=== PATIENT | male | born 1945 | race Caucasian/White ===

== ENCOUNTER 2018-09-02 17:46 | Emergency (ER) | payer MEDICARE, SELFPAY ==
[2018-09-02 17:46] VITALS: BP 122/89; PULSE 74; RESP 16; TEMP 36.2; O2SAT 97; BMI 38.7
[2018-09-02] MEDS: morphine 8 MG/ML Syringe IM (18:20)
[2018-09-02] MEDS: Orphenadrine 60 MG/2 ML Ampul IM (18:23)
--- NOTE | 2018-09-02 19:30 | ED.DCSUM_ITS ---
- ER Visit Summary Date of Service: 09/02/18 Chief Complaint: Back pain History of Present Illness: The patient is a [address] Beck. Patient reports he has chronic back pain has a history of spinal stenosis. Reports that today he was leaning against an island when it slid and he twisted awkwardly. He did not fall. States that approximately 2 hours later it feels as though he has muscle spasms in his back. Reports is a sharp pain is 510 when he remained still. Is 10 out of 10 with movement. He denies any radiation to his legs. No numbness or tingling in his legs. No problems with his bowels or his bladder. No groin numbness. No fever, chills, abdominal pain, or other red flags. Physical Examination: Vitals: Stable. Afebrile. General: A&O x 3. NAD. Cardiovascular exam: Regular rate and rhythm, no murmur, rub or gallop. Respiratory exam: Clear to auscultation bilaterally. No wheezes or stridor. Abdominal exam: Soft, nontender, nondistended, normal bowel sounds. No peritoneal signs. Back: Diffuse moderate tenderness to palpation over the lumbar spine and the paraspinous musculature in the lumbar region. No point tenderness. Negative straight leg bilaterally. 5/5 DF, PF, EHL bilaterally. Normal sensation to light touch throughout. Extremity: No clubbing, cyanosis, or edema. Emergency Department Course and Treatment: An OARRS report was obtained which shows that the patient is been forthcoming with his history. He has had 10 prescriptions for opiates in the past year. However these have all been from Dr. Brett Lopez. He is currently on 2 [place] a day. Patient reports he has been on this for 4-5 years. I suspect that he has developed tolerance to this and this is not going to work for his pain. He is given dose of morphine and Norflex IM here. He is resting comfortably. Treatment Plan: Patient will be discharged with Percocet for pain. Instructed to follow-up with his primary care physician in 3-5 days if not improving. He is also given the name of Dr. Jolly for pain management. Return to the emergency department for any worsening symptoms. Disposition: To home in improved and stable condition. Impression: 1. Acute on chronic back pain. This note was generated with Dragon dictation software. It may contain incorrect words, spelling, and punctuation that were not noted in review of the chart prior to signing ED Disposition - Plan for ED Patient: Disposition: Home or Assisted Living Chief Complaint: Back Instructions: ED Neck Back Pain General Prescriptions: Oxycodone HCl/Acetaminophen [Percocet 5/325] 1 tablet PO Q6H PRN PRN 3 Days #12 tablet PRN Reason: Pain Orphenadrine [Norflex ER] 100 mg PO BID #14 tablet Referrals: Vu Beck MD [Primary Care Provider] - 3-5 Days if not improving Randa Jolly MD [STAFF PHYSICIAN] - As soon as possible
[2018-09-02 19:42] VITALS: PULSE 84; RESP 16; O2SAT 96
== END 2018-09-02 19:43 | disposition home or self-care (01) ==
LOC: ED 18:27
PROVIDERS: Emergency Provider Emergency Medicine; Family Provider Family Medicine; PCP Family Medicine
DX: M54.5 Low back pain (principal); G89.29 Other chronic pain; X50.1XXA Overexertion from prolonged static or awkward postures, initial encounter; Y93.9 Activity, unspecified; Y92.9 Unspecified place or not applicable; E11.9 Type 2 diabetes mellitus without complications; I10 Essential (primary) hypertension; E78.00 Pure hypercholesterolemia, unspecified; M48.00 Spinal stenosis, site unspecified; Z86.718 Personal history of other venous thrombosis and embolism; Z86.711 Personal history of pulmonary embolism; Z79.01 Long term (current) use of anticoagulants; Z79.899 Other long term (current) drug therapy
CPT/HCPCS: 96372; 99282

== ENCOUNTER → 2020-04-27 07:32 | Outpatient (CLI) | payer MEDICARE, SELFPAY ==
--- NOTE | 2020-04-27 07:36 | RAD_ITS ---
STUDY: X-RAY - LUMBAR SPINE REASON FOR EXAM: Male, 74 years old. Lower back pain TECHNIQUE: 3 view(s) of the lumbar spine were obtained. COMPARISON: CT of the abdomen and pelvis dated 10/26/2014 FINDINGS: There is no evidence of fracture or dislocation in the lumbar spine. The vertebral body heights are well-maintained. There are moderate multilevel degenerative changes with facet hypertrophy, disc space narrowing and anterior osteophytes. This is significantly changed when compared with the abdominal CT dated 10/20/2014. RAD/Lumbar Spine 2 or 3 Views IMPRESSION: No fracture or dislocation in the lumbar spine. Stable moderate degenerative change. Electronically Signed: Tomasz Pierson, at 16:32 EDT Tel , Service support ,
== END ==
PROVIDERS: PCP Family Medicine; Referring Provider Anesthesiology Pain Medicine; Visit Provider Anesthesiology Pain Medicine
DX: M54.9 Dorsalgia, unspecified (principal)
CPT/HCPCS: 72100

== ENCOUNTER 2020-04-27 17:28 | Emergency (ER) | payer MEDICARE, OTHER, SELFPAY ==
[2020-04-27 17:30] VITALS: BP 140/82; PULSE 64; RESP 16; TEMP 36.6; O2SAT 94; BMI 41.3
--- NOTE | 2020-04-27 17:57 | ED.DCSUM_ITS ---
History of Present Illness Chief Complaint: Back Informant: Patient, Significant Other Onset: Today Context: Sudden Onset Chronic pain exacerbated by: getting off of flaat XRay table this AM, again after twisting at home Injury: Twisting Timing: Continuous Quality: Aching Location: Lumbar - middle Current Severity: Moderate Maximum Severity: Severe Worsened by: improves with: Movement, Ambulation Relieved by: Remaining Still Associated Symptoms: Numbness - chronic both feet, unchanged; no saddle anesthesia, Radiation to Left Leg - chronically intermittent but not today, - - No fevers or abdominal pain. Able to ambulate but with significant pain. No new weakness. No new bowel or bladder dysfunction, patient states that he is on a diuretic and dribbles urine frequently, and that is unchanged. He urinated to day and was able to when he wanted to without retention. Narrative: Patient is significant other describe chronic pain in his back, for years and a diagnosis of spinal stenosis. He came to a point recently when he was asked if he wanted to consider surgery or pain management first and they decided on pain management. He received a prescription for Percocet from pain management for the first time yesterday, and he tries not to take them, they are dosed twice daily as needed. He states he had some outpatient x-rays scheduled for this morning of his back, and they put him on a flat hard table and on getting off of it, he had a significant exacerbation of his pain so his gave him a Percocet, that was the second 1 today, the first was this morning. Then he went home and states he was doing some work outside and twisted and had a severe exacerbation of it that has persisted. He has chronic peripheral neuropathy in his feet and that is unchanged. Prior similar symptoms: Yes, With Prior Back Pain - Past Medical History (1) Type 2 diabetes mellitus Status: Chronic (2) Peripheral neuropathy Status: Chronic (3) Chronic back pain Status: Chronic (4) History of DVT (deep vein thrombosis) Status: Chronic (5) History of pulmonary embolism Status: Chronic (6) Hypertension Status: Chronic (7) PAF (paroxysmal atrial fibrillation) Status: Chronic (8) Thoracic spinal stenosis Status: Chronic Past Medical History - Allergies and Home Meds Allergies/Adverse Reactions: Allergies milk Adverse Reaction (Verified 04/27/20 17:30) Upset Stomach Milk Containing Products Adverse Reaction (Verified 04/27/20 17:30) Upset Stomach Primary Care Physician: Vu Beck MD [Primary Care Provider] - 1 Week if not improving (and/or Dr. whitney) Surgical History: - - IVC Filter, Thoracic back surgery, RUE ulnar nerve surgery, R ankle spur surgery, T+A. Lives: Spouse/ Significant Other Smoking Status: Never smoker - Family History Maternal Family History: Reports: Heart Disease Paternal Family History: Reports: No pertinent history Review of Systems General: Denies: Chills, Fever, Sweats Gastrointestinal: Denies: Abdominal pain, Nausea, Vomiting, Diarrhea, Melena, Hematochezia Genitourinary: Reports: Frequency - Chronic, due to diuretic according the patient. Denies: Dysuria, Hematuria Musculoskeletal: Reports: Back pain. Denies: Swelling, Extremity Pain - Not currently Skin: Denies: Rash, Wounds Neurological: Reports: Numbness. Denies: Headache, Weakness Physical Exam Vital Signs/Narrative: Vital Signs Temp Pulse Resp BP Pulse Ox 04/27/20 17:30 97.8 F 64 16 140/82 H 94 Inital Vital Signs reviewed: Yes General: Well nourished, Well developed, Obese, - - No acute distress, but in pain if he tries to move at all with regards to his low back Head: Normocephalic, Atraumatic Eyes: Perrl, EOMI Neck: Supple - FROM, Nontender Respiratory: No distress Abdomen: Soft, Nontender, Nondistended, Normal bowel sounds. Negative for: Pulsatile mass Back: Normal Inspection, Nontender, Negative SLR - Right, Negative SLR - Left. Negative for: Spinal tenderness Extremeties: Nontender, Edema - Mild both lower extremities pretibial, signs of chronic stasis no infection or cellulitis, Strong Pulses, Symmetric Skin: Normal color, No rash, No Trauma Neuro: Alert, Oriented, Normal Strength, Normal DTR, Normal Gait, Normal Reflexes, Parasthesia - both feet, symmetric Psychological: Normal affect, Normal Mood Diagnostic/Tx/Re-eval - Medical Decision Making Patient had lumbar spine x-rays earlier today, I did look at the results and dis cussed with the patient, and they show degenerative arthritis but no acute abnormalities. He was treated with IM morphine and Norflex. Before it started working, he and his decided to be discharged, he states he feels he will be able to make it to the car, and go home and rest which I am fine with. ED Disposition - Plan for ED Patient: Disposition: Home or Assisted Living Diagnosis: Acute exacerbation of chronic low back pain Instructions: ED Back Pain Acute or Chronic Referrals: Vu Beck MD [Primary Care Provider] - 1 Week if not improving (and/or Dr. whitney)
[2020-04-27] MEDS: Orphenadrine 60 MG/2 ML Ampul IM (18:34)
[2020-04-27] MEDS: Morphine 4 MG/ML Syringe IM (18:34)
[2020-04-27 18:45] VITALS: RESP 18
== END 2020-04-27 19:03 | disposition home or self-care (01) ==
PROVIDERS: Emergency Provider Emergency Medicine; PCP Family Medicine
DX: M54.5 Low back pain (principal); G89.29 Other chronic pain; E66.9 Obesity, unspecified; I10 Essential (primary) hypertension; I48.0 Paroxysmal atrial fibrillation; E11.40 Type 2 diabetes mellitus with diabetic neuropathy, unspecified; M48.04 Spinal stenosis, thoracic region; Z86.711 Personal history of pulmonary embolism; Z86.718 Personal history of other venous thrombosis and embolism; Z79.01 Long term (current) use of anticoagulants; Z79.899 Other long term (current) drug therapy
CPT/HCPCS: 72100; 96372; 99282

== ENCOUNTER 2020-05-08 07:52 | Outpatient (RCR) | payer MEDICARE, SELFPAY ==
--- NOTE | 2020-05-08 10:01 | HP.PTEVAL_ITS ---
Patient's Visit Information LACI LAWLER is a 74 year old M referred to Physical Therapy by Dr. Randa Jolly MD with a diagnosis of BACK PAIN,LEG PAIN,LEG WEAKNESS. Date of Evaluation: 05/08/20 Physical Therapist: Isael Grewal, PT, Cert MDT, OCS - Visit Plan Frequency: 2x /Week Duration: 4 Weeks Plan: PT INTERVENTIONS MODALTIES ,FLEXION LUMBAR,DLS ABD/BACK,POSTURAL EX'S - Subjective This 74 y/o male presents physical therapy with back pain,leg pain and leg weakness. Patient has lumbar pain and weakness since 2002 since falling off platform . Patient had lumbar surgery laminectomy due to bone spurs. Patient most recently spine DR recommended possible spine surgery ,did MR showed spinal stenosis DDD MOD . Patient recently developed back pain twisting went to ER due to severe back pain. Patient x-rays and morphine and muscle relaxer. Seen Dr Barnes reccommended pain MEDS and wants to do epidural injections. Aggraveting factors walking and standing affects ADLS' and housework tasks.Patient unable to lay supine in bed causes severe pain .Sleeps with recliner . Aleviating siting resting. C/O left leg parathesia/tingling. Patient bowel/bladder. Coughing/sneezing-. Location symmtrical lumbar occasional left leg.Pateint pain affects QOL ,ADLS' and function.Patient is only able to walk 1 block ,but uses cart helped to unload spine. SOCIAL: . 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 GAIT: reciprocal pattern antalgic gait unsteady. NEURO: denies parathesia/tingling 1/3 L3-4,L4-5,L5-S1. MMT:quads/hams 4-/5,hip flexion,abd 3+/5 ,ankle 4/5. LUMBAR ROM: mod loss flexion,severe loss extension,side glides mod loss. FLEXABLITY : hams mod loss,piriformis mod loss - Special Tests L/S Slump test left side: Negative L/S Slump test right side: Negative L/S Left Straight Leg Raise: Negative L/S Right Straight Leg Raise: Negative - Goals Goal 1:: Independant with HEP Goal Time Frame: 4-6 Weeks Goal 2:: Decrease lumbar pain by 50% or> with walking and standing . Goal Time Frame: 4-6 Weeks Goal 3:: Improve lumbar ROM for function of recovery Goal Time Frame: 4-6 Weeks Goal 4:: Patient improve strength hip flexors 4-/5 to i mprove gait Goal Time Frame: 4-6 Weeks Goal 5:: Patient to improve back owestry score by 5 points or > to improve QOL. Goal Time Frame: 4-6 Weeks - Rehabilitation Potential Physical Therapy Diagnosis: This patient has lumbar pain and radicular symptoms left leg along with weakness LE especially hips with poor lumbar ROM ,inablity to walk 1 block or stand stand < 5mins ,MRI showes stenosis and DDD. Rehabilitation Potential: Good - Anticipated Interventions Patient/Client Instruction: Educate patient on: Condition, Plan of Care For the Purpose of:: To decrease pain, To increase ROM, To improve muscle performance and motor function, To improve ability to perform ADL's, To increase tolerance to activity/condition/position, To improve ability of physical actions for home/community/work/leisure, To improve health of tissue, To decrease soft tissue restriction, To increase flexibility/ROM, To reduce risk of recurrence, To improve health and function, To improve ability to perform tasks related to life management Therapeutic Exercise to Include: Strength training, Postural training, Flexibilty training, Dynamic Lumbar Stabilization For the Purpose of:: To decrease pain, To increase ROM, To improve muscle performance and motor function, To improve ability to perform ADL's, To increase tolerance to activity/condition/position, To improve ability of physical actions for home/community/work/leisure, To improve health of tissue, To decrease soft tissue restriction, To increase flexibility/ROM, To improve ability to perform tasks related to life management TENS: Yes IF ES: Yes Cryotherapy (ice pack, ice massage): Yes Thermo therapy (hot pack): Yes Ultrasound (thermal/non thermal): Yes For the Purpose of:: To decrease pain, To increase ROM, To improve muscle performance and motor function, To improve ability to perform ADL's, To increase tolerance to activity/condition/position, To improve ability of physical actions for home/community/work/leisure, To improve health of tissue, To decrease soft tissue restriction, To reduce risk of recurrence, To improve ability to perform tasks related to life management Thank you for the opportunity to evaluate your patient. For Medicare and Medicare O plans, please review the plan of care and approve it. It will need to be FAXED BACK to us at [phone] for Medicare purposes. For Medicare only, by signing this I certify the plan of care. Please let me know if there are questions or concerns regarding this plan of care. Physician Signature: Date:
== END 2020-05-08 19:00 | disposition home or self-care (01) ==
LOC: PT 07:52
PROVIDERS: PCP Family Medicine; Referring Provider Anesthesiology Pain Medicine; Visit Provider Anesthesiology Pain Medicine
DX: M54.9 Dorsalgia, unspecified (principal); M79.606 Pain in leg, unspecified; R29.898 Other symptoms and signs involving the musculoskeletal system
CPT/HCPCS: 97110; 97162

== ENCOUNTER → 2020-07-05 16:57 | Outpatient (CLI) | payer MEDICARE, SELFPAY ==
[2020-07-05 17:32] LABS: Amphetamine Urine VISTA NEGATIVE (<1000 ng/mL); Barbiturate Urine VISTA NEGATIVE (< 200 ng/mL); Benzodiazepine Urine VISTA NEGATIVE (< 200 ng/mL); Cocaine Urine VISTA NEGATIVE (< 300 ng/mL); Ecstacy Urine VISTA NEGATIVE (< 500 ng/mL); Methadone Urine VISTA NEGATIVE (< 300 ng/mL); PCP Urine VISTA NEGATIVE (< 25 ng/mL); THC Urine VISTA NEGATIVE (< 50 ng/mL); Vista UDS pH Range 6
== END ==
PROVIDERS: PCP Family Medicine; Referring Provider Anesthesiology Pain Medicine; Visit Provider Anesthesiology Pain Medicine
DX: F11.20 Opioid dependence, uncomplicated (principal)
CPT/HCPCS: 80307

== ENCOUNTER → 2021-01-01 12:14 | Outpatient (CLI) | payer MEDICARE, SELFPAY ==
[2021-01-01 15:14] LABS: Amphetamine Urine VISTA NEGATIVE (<1000 ng/mL); Barbiturate Urine VISTA NEGATIVE (< 200 ng/mL); Benzodiazepine Urine VISTA NEGATIVE (< 200 ng/mL); Cocaine Urine VISTA NEGATIVE (< 300 ng/mL); Ecstacy Urine VISTA NEGATIVE (< 500 ng/mL); Methadone Urine VISTA NEGATIVE (< 300 ng/mL); PCP Urine VISTA NEGATIVE (< 25 ng/mL); THC Urine VISTA NEGATIVE (< 50 ng/mL); Vista UDS pH Range 5
== END ==
PROVIDERS: PCP Family Medicine; Referring Provider Anesthesiology Pain Medicine; Visit Provider Anesthesiology Pain Medicine
DX: F11.20 Opioid dependence, uncomplicated (principal)
CPT/HCPCS: 36415; 80307

== ENCOUNTER 2021-01-23 12:00 | Outpatient (RCR) | payer MEDICARE, SELFPAY ==
--- NOTE | 2021-01-07 08:55 | HP.PTEVAL ---
Patient's Visit Information LACI LAWLER is a 75 year old M referred to Physical Therapy by Dr. Randa Jolly MD with a diagnosis of Leg weakness. Date of Evaluation: 01/07/21 Physical Therapist: Se Dao, ALINAT, OCS, CSCS - Visit Plan Frequency: 3x /Week Duration: 4-6 Weeks Plan: 2-3x/week for 3-6 weeks for start pool based therapy for. 1. LB ROM emphasizing NS. 2. HS and quad stretches. 3. core strengtha dn general ex progressing to HEP or community pool. Ensure patient using at least cane. sent doctor request for wh walker with sliders and would prefer him use this. He is aware of this and may contact doctor himself. Progress to land therapy if needed after water. - Subjective Dr. Jolly sent him over. Said he was too stiff. Has stenosis of spine and legs go numb and feel weak and don't respond to him properly. Has tripped ont things and fallen before. Has cane and walker but forgets them, he knows how to use them. Legs are numb much of time descirbed as not responding. Sees surgeon at [facility] every 3 months but nothing to be done there. Dr. Jolly gives injections 3x now, it helps for 2 months or so and last one was in October. Helps his nerve respond quicker afte injection. Pt says surgeon wanted to do surgery but pt did not want it. Had a surgery in 2006 and it really helped to have it cleaned out. Has had previous therapy for this and does a lot better and put surgery off. He is comfortable at rest in a chair. Sleeps in recliner as he cannot sleep in bed. Sleeps well in chair. Hurts in bed. 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 Used to workout at but stopped due to covid. Spends day hauling [employer] and watching TV and work around house with what he can, cannot be on feet all day. Lives with in a [place] without steps. Basic ADLs are done I, needs sock aide to put on socks. - Pain LBP Pain Intensity (Out of 10): 0 Pain Intensity Range: 0, 9 Comment: 0 at rest. - Objective Walks I slowly and hunched over, neuropathic gait pattern with diminished motor control in feet and ankles. Stand romberg is challenging even with eo but static standing balance fair with wide ROC. LB AROM fully limited in extension with pain, flexion mod limited, SB max limited. HS and quads max tight at -55 90/90 HS test and unable to get to neutral hip ext with knee bent. Sit to stand requires UE and sometimes multiple attempts, bed trasnfer I but slow and painful. reflexes patella and achilles 1/3 B. Sensation LE at deficit in feet adn ankles and motor control of ankles i slow and at deficit with ev/inv. L ankle aROM limited due to previous surgery in ankle but funcitonal. Strength ankles 3+ B, knees 4 B, hips 3+ B hip felxion, abd, ext. Hard to get pelvic movement due to extreme tightness in back and upper leg muscles. Walks out with wh walker much safer adn less pain in 300 feet then the walk back to eval room. - Balance Scores Functional Gait Assessment Score: 15 % Disability: 50.0000 - Goals Goal 1:: I approp Pool or land based ex to manage condition. Goal Time Frame: 4-6 Weeks Goal 2:: Pt report pain 03/10 at worst and 50$% better overall. Goal Time Frame: 4-6 Weeks Goal 3:: LEFSscore 45/80 Goal Time Frame: 4-6 Weeks - Rehabilitation Potential Physical Therapy Diagnosis: Functional deficits and balance concerns fro leg weakness due to stenosis and sedentarism Rehabilitation Potential: Fair - Anticipated Interventions Patient/Client Instruction: Educate patient on: Condition, Plan of Care For the Purpose of:: To decrease pain, To increase ROM, To improve muscle performance and motor function, To increase tolerance to activity/condition/position, To improve ability of physical actions for home/community/work/leisure Therapeutic Exercise to Include: Strength training, Postural training, Flexibilty training, Gait and locomotor training, In an aquatic setting, Passive ROM, Active ROM, Dynamic Lumbar Stabilization For the Purpose of:: To decrease pain, To increase ROM, To improve muscle performance and motor function, To increase tolerance to activity/condition/position, To improve ability of physical actions for home/community/work/leisure, To improve gait and locomotor functions, To increase flexibility/ROM Thank you for the opportunity to evaluate your patient. For Medicare and Medicare HMO plans, please review the plan of care and approve it. It will need to be FAXED BACK to us at [phone] for Medicare purposes. For Medicare only, by signing this I certify the plan of care. Please let me know if there are questions or concerns regarding this plan of care. Physician Signature: Date:
--- NOTE | 2021-03-28 17:32 | HP.PTDCNRP_ITS ---
LACI LAWLER was seen in my office for initial evaluation on 01/07/21. The following Plan of Care was established for this patient: Initial Frequency: 3x /Week Initial Duration: 4-6 Weeks Patient/Client Instruction: Educate patient on: Condition, Plan of Care For the Purpose of:: To decrease pain, To increase ROM, To improve muscle performance and motor function, To increase tolerance to activity/condition/position, To improve ability of physical actions for home/community/work/leisure Therapeutic Exercise to Include: Strength training, Postural training, Flexibilty training, Gait and locomotor training, In an aquatic setting, Passive ROM, Active ROM, Dynamic Lumbar Stabilization For the Purpose of:: To decrease pain, To increase ROM, To improve muscle performance and motor function, To increase tolerance to activity/co ndition/position, To improve ability of physical actions for home/community/work/leisure, To improve gait and locomotor functions, To increase flexibility/ROM This patient was last seen in our office 01/23/21. Pertinent comments regarding their Physical therapy will appear below: Pt seen 6 visits of POC but did not attend or reschedule the last two. at this point, it has been over 2 months adn I will discontinue due to nonattendance. At this point I will be discontinuing this patient from physical therapy. I would be happy to see this patient again in the future if found appropriate by the physician. Thank you! Se Dao, DPT, OCS, CSCS
== END 2021-01-23 19:00 | disposition home or self-care (01) ==
LOC: PT 12:00
PROVIDERS: PCP Family Medicine; Referring Provider Anesthesiology Pain Medicine; Visit Provider Anesthesiology Pain Medicine
DX: R53.1 Weakness (principal)
CPT/HCPCS: 97113; 97162

== ENCOUNTER → 2022-05-01 | Outpatient (CLI) | payer MEDICARE, SELFPAY ==
[2022-05-01 13:38] LABS: Amphetamine Urine VISTA NEGATIVE (<1000 ng/mL); Barbiturate Urine VISTA NEGATIVE (< 200 ng/mL); Benzodiazepine Urine VISTA NEGATIVE (< 200 ng/mL); Cocaine Urine VISTA NEGATIVE (< 300 ng/mL); Ecstacy Urine VISTA NEGATIVE (< 500 ng/mL); Methadone Urine VISTA NEGATIVE (< 300 ng/mL); PCP Urine VISTA NEGATIVE (< 25 ng/mL); THC Urine VISTA NEGATIVE (< 50 ng/mL); Vista UDS pH Range 5
== END | disposition home or self-care (01) ==
LOC: LAB 12:48
PROVIDERS: PCP Family Medicine; Referring Provider Anesthesiology Pain Medicine; Visit Provider Anesthesiology Pain Medicine
DX: F11.20 Opioid dependence, uncomplicated (principal)
CPT/HCPCS: 80307

== ENCOUNTER 2022-09-10 16:23 | Outpatient (CLI) | payer MEDICARE, SELFPAY ==
--- NOTE | 2022-09-10 16:53 | MRI_ITS ---
STUDY: MR Spine Lumbar W/O Contrast 09/10/2022 7:26 PM REASON FOR EXAM: Male, 76 years old. Back pain RADICULOPATHY, LUMBAR SPINE Technologist Notes Other, LOW BACK PAIN WITH BILATERAL LEG PAIN. LEGS GIVE OUT ON HIM X 2-3 YEARS. HX OF LUMBAR SURGERY. TECHNIQUE: MR Spine Lumbar W/O Contrast Standardized fat and water weighted pulse sequences were obtained. COMPARISON: CT abdomen and pelvis 10/26/2014 FINDINGS: There is straightening of the normal lumbar lordosis. There is no substantial scoliosis. Normal conus medullaris that terminates at the L1. L1-2: Normal endplates. Normal disc height and morphology. Normal central canal and intervertebral neuroforamina. L2-3: Loss of intervertebral disc height. There is endplate spondylosis of the vertebral body. Normal central canal and intervertebral neuroforamina. There is bilateral facet arthropathy. L3-4: There is bilateral ligamentum flavum thickening. Disc desiccation. Loss of intervertebral disc height. There is endplate spondylosis of the vertebral body. Severe degenerative facet disease on the left side. Left neural foraminal stenosis. Compression of exiting left nerve roots. Narrowing of the left lateral recess. L4-5: There is bilateral ligamentum flavum thickening. Disc desiccation. Loss of intervertebral disc height. There is endplate spondylosis of the vertebral body. Bilateral neural foraminal stenosis. Compression of exiting nerve roots. L5-S1: Normal endplates. Normal disc height and morphology. Normal central canal and intervertebral neuroforamina.There is bilateral facet arthropathy. Normal visualized sacral ala. Normal visualized paraspinous soft tissue structures. MRI/Spine Lumbar (Routine) IMPRESSION: Multilevel degenerative changes, as described above. L3-4: Severe degenerative facet disease on the left side. Left neural foraminal stenosis. Compression of exiting left nerve roots. Narrowing of the left lateral recess. L4-5: Bilateral neural foraminal stenosis. Compression of exiting nerve roots. Electronically Signed: Sarkis Loera MD at 19:31 EST ,
== END 2022-09-10 23:59 | disposition home or self-care (01) ==
PROVIDERS: PCP Family Medicine; Visit Provider Anesthesiology Pain Medicine
DX: M54.16 Radiculopathy, lumbar region (principal)
CPT/HCPCS: 72148

== ENCOUNTER → 2023-03-26 | Outpatient (CLI) | payer MEDICARE, SELFPAY ==
[2023-03-26 16:33] LABS: Amphetamine Urine VISTA NEGATIVE (<1000 ng/mL); Barbiturate Urine VISTA NEGATIVE (< 200 ng/mL); Benzodiazepine Urine VISTA NEGATIVE (< 200 ng/mL); Cocaine Urine VISTA NEGATIVE (< 300 ng/mL); Ecstacy Urine VISTA NEGATIVE (< 500 ng/mL); Methadone Urine VISTA NEGATIVE (< 300 ng/mL); PCP Urine VISTA NEGATIVE (< 25 ng/mL); THC Urine VISTA NEGATIVE (< 50 ng/mL); Vista UDS pH Range 5
== END | disposition home or self-care (01) ==
LOC: LAB 14:24
PROVIDERS: PCP Family Medicine; Visit Provider Anesthesiology Pain Medicine
DX: F11.20 Opioid dependence, uncomplicated (principal)
CPT/HCPCS: 80307

== ENCOUNTER 2023-10-08 15:07 | Inpatient (IN) | payer OTHER, SELFPAY ==
[2023-10-08 15:13] VITALS: BP 120/74; PULSE 92; RESP 32; TEMP 36.8; O2SAT 85; BMI 41.5
[2023-10-08 15:30] VITALS: BP 137/89; PULSE 86; RESP 22; O2SAT 93
--- NOTE | 2023-10-08 15:31 | EKG12_ITS ---
Test Reason : DYSRHYTHMIA Blood Pressure : / mmHG Vent. Rate : 096 BPM Atrial Rate : 000 BPM P-R Int : 000 ms QRS Dur : 134 ms QT Int : 348 ms P-R-T Axes : 000 074 -47 degrees QTc Int : 439 ms Atrial fibrillation Right bundle branch block T wave abnormality, consider inferolateral ischemia Abnormal ECG Confirmed by LEYLA LANDON, PEACE ([id number]), editor farm journal LEVAR SMITH ([id number]) on 10/09/2023 1:58:06 PM Referred By: TRISH Confirmed By:PEACE MAYER MD
--- NOTE | 2023-10-08 15:33 | EX.ED.DYSGE1 ---
HPI History of Present Illness Chief Complaint: Weakness Narrative Narrative: 77-year-old male presenting with generalized weakness. He has been sick for a couple of days with a mild cough, subjective fevers and chills. Patient states he has been a little nauseous. Patient was going to see his primary care physician today for an appointment but as he got up to walk to the door he became weak and his legs could not move and was concerned he would fall. Patient was hypoxic when EMS arrived 85% on room air and he does not usually wear oxygen. He denies chest pain but does feel short of breath. 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 Patient is on Eliquis with history of A-fib and PEs. He has not missed any doses. PFSH PFSH Home Medications Ibuprofen [Motrin] 800 mg PO TID PRN PRN Pain 11/28/16 [History Last Taken Unknown] apixaban 5 mg tablet (Eliquis) 5 mg PO BID #30 tabs 11/28/16 [Rx Last Taken 10/08/23] atorvastatin 40 mg tablet (Lipitor) 40 mg PO QHS 11/28/16 [History Last Taken Unknown] furosemide 40 mg tablet 40 mg PO DAILY 11/28/16 [History Last Taken Unknown] oxycodone-acetaminophen 5 mg-325 mg tablet 1 tab PO TID PRN Pain Score 1-07/2804/27/20 [History Last Taken Unknown] finasteride 5 mg tablet 5 mg PO DAILY Prostate 10/08/23 [History Last Taken Unknown] gabapentin 300 mg capsule 300 mg PO QHS Neuropathy 10/08/23 [History Last Taken Unknown] glimepiride 1 mg tablet 1 mg PO DAILY Diabetes 10/08/23 [History Last Taken 10/08/23] metformin 500 mg tablet 500 mg PO BID 10/08/23 [History Last Taken 10/08/23] metoprolol succinate 50 mg tablet,extended release 24 hr 50 mg PO DAILY Blood pressur 10/08/23 [History Last Taken 10/08/23] tamsulosin 0.4 mg capsule 0.4 mg PO QHS 10/08/23 [History Last Taken 10/07/23] tirzepatide 5 mg/0.5 mL subcutaneous pen injector (Mounjaro) 5 mg subcut QWEEK Weight loss 10/08/23 [History Last Taken Unknown] Allergy/AdvReac Type Severity Reaction Status Date / Time milk AdvReac Upset Verified 04/27/20 17:30 Stomach Milk Containing Products AdvReac Upset Verified 04/27/20 17:30 (Dairy) Stomach [Milk Containing Products] Social History Smoking Status: Never smoker ROS ROS ED ROS Narrative Neurolysed weakness Constitutional Constitutional ED: Reports chills and subjective; Denies fever(s) or sweats Eyes Eyes: Denies blurry vision or change in vision ENT ENT ED: Reports sore throat; Denies ear pain Cardiovascular Cardiovascular: Denies chest pain, palpitations or racing heartbeat Respiratory/Chest Respiratory/Chest: Reports cough and dyspnea; Denies sputum Gastrointestinal Gastrointestinal: Reports nausea; Denies abdominal pain, constipation, diarrhea or vomiting Genitourinary Genitourinary ED: Denies dysuria, hematuria or urinary frequency Musculoskeletal Musculoskeletal: Denies arthralgias, myalgias or neck pain Integumentary Denies abscess, Abrasions or rash Neurologic Neurologic: Denies headache(s), paresthesias or weakness Psychiatric Psychiatric: Denies anxiety, depression, suicidal ideation or suicidal thoughts Endocrine Endocrinology: Denies polydipsia or polyuria EXAM Physical Exam Const Vital Signs: 10/08/23 15:13 10/08/23 15:30 10/08/23 15:31 Temperature 98.3 F Temperature Source Oral Pulse Rate 92 86 Respiratory Rate 32 H 22 H Respiratory Pattern Tachypnea Blood Pressure 120/74 137/89 H Blood Pressure Mean 89 105 Pulse Ox 85 93 Oxygen Delivery Method Room Air Nasal Cannula Oxygen Flow Rate (L/min) 3 10/08/23 16:39 10/08/23 17:23 Temperature 98.0 F Temperature Source Pulse Rate 99 88 Respiratory Rate 27 H 16 Respiratory Pattern Blood Pressure 145/83 H 125/84 H Blood Pressure Mean 103 97 Pulse Ox 96 98 Oxygen Delivery Method Nasal Cannula Oxygen Flow Rate (L/min) 3 Positive well nourished General Appearance ED: NAD; Negative for pallor HEENT Reports moist mucous membranes Eyes PERRL and EOMs intact bilaterally Neck no lymphadenopathy Chest Wall inspection of chest normal Resp Resp Narrative: Hypnic. Auscultation: diminished lung sounds right lower and left lower Cardio regular rate and regular rhythm GI normal to inspection, nondistended, normoactive bowel sounds Extremity normal to inspection Neuro oriented x3 and CN's II-XII intact bilaterally Sensorium / Orientation: alert Psych mental status grossly normal Skin no rashes or lesions noted and no wounds General Skin Exam: Negative for jaundice or pallor MDM MDM MDM Narrative Medical decision making narrative: Presenting with generalized weakness. Found to be hypoxic on room air at 85%. Patient placed on 3 L and is doing well. Patient reports feeling ill this week for the last 2 days. Subjective fevers at home but they do not own a thermometer. Differential includes but is not limited to ACS, pneumonia, pneumonia, COVID, influenza, dehydration, electro abnormalities, anemia. PE was considered however patient is anticoagulated. CBC obtained to assess white blood cell count, hemoglobin, platelets. CMP to assess liver function, renal function, electrolytes. High-sensitivity troponin and EKG to assess for ischemia. Chest x-ray to rule out pneumonia. BNP will be added to assess for CHF. Patient given a Cepacol lozenge as he states he has a sore throat. He is also given Reglan as he feels a little nauseous. He was already given Zofran via squad and route. CBC shows normal white blood cell count of 6.7. Hemoglobin 16.1. Platelets are 155. Renal function and electrolytes within normal limits. LFTs unremarkable with exception of a total bilirubin of 1.10. BNP mildly elevated 141 was negative for infection. Rapid COVID came back positive. Chest x-ray on my interpretation shows no acute process. The radiologist interprets this and agrees. Requested Tylenol for sore throat and this did not help his throat. He was given a Cepacol lozenge as well. Since the patient is hypoxic he was started on Decadron. Discussed with hospitalist for admission. Impression: 1. Debility 2. COVID-19 3. Hypoxia Lab Data Labs: Laboratory Results - last 24 hr 10/08/23 10/08/23 15:15 16:35 WBC 6.7 RBC 5.17 Hgb 16.1 Hct 49.0 MCV 94.8 H MCH 31.1 MCHC 32.9 RDW Std Deviation 50.0 H RDW Coeff of Zohra 14.2 Plt Count 155 MPV 10.1 Immature Gran % (Auto) 0.300 Neut % (Auto) 55.5 Lymph % (Auto) 30.6 [place] % (Auto) 13.1 H Eos % (Auto) 0.0 Baso % (Auto) 0.5 Absolute Neuts (auto) 3.7 Absolute Lymphs (auto) 2.04 Nucleated RBC % 0 Sodium 139 Potassium 4.0 Chloride 105 Carbon Dioxide 26.0 Anion Gap 8 BUN 15 Creatinine 1.08 Estim Creat Clear Calc 57.18 Est GFR (MDRD) Af Amer 86 Est GFR (MDRD) Non-Af 71 BUN/Creatinine Ratio 13.9 Glucose 133 H Calcium 8.3 L Total Bilirubin 1.10 H AST 28 ALT 42 Alkaline Phosphatase 63 Troponin I High Sens 8 B-Natriuretic Peptide 149.1 H Total Protein 7.2 Albumin 3.1 L Globulin 4.1 Albumin/Globulin Ratio 0.8 L Urine Color Yellow Urine Clarity Clear Urine pH 6.0 Ur Specific [place] 1.020 Urine Protein 100 H Urine Glucose (UA) Normal Urine Ketones 5 H Urine Occult Blood 25 H Urine Nitrite Negative Urine Bilirubin Negative Urine Urobilinogen Normal Ur Leukocyte Esterase 25 H Urine RBC 0-5 SEEN Urine WBC 0-5 SEEN Ur Squamous Epith Cells 0-5 SEEN Urine Bacteria 0 SEEN Urine Mucus 0 SEEN Radiography Diagnostic Testing: Clinical Impression(s) from Imaging Studies Chest X-Ray 10/08/23 15:45 IMPRESSION: No radiographic evidence of acute cardiopulmonary disease. Electronically Signed: George Abernathy DO at 17:01 EST Reading Location ID and State: [address] [place] [address] Tel [phone], Service support , Discharge Plan Triage Chief Complaint: Weakness ED Provider: John Joyce Dx/Rx/DC Orders Prescriptions: No Action furosemide 40 MG tablet 40 mg PO DAILY atorvastatin [Lipitor] 40 MG tablet 40 mg PO QHS Ibuprofen [Motrin] 800 MG tablet 800 mg PO TID PRN PRN (Reason: Pain) Eliquis 5 MG tablet 5 mg PO BID Qty: 30 0RF Rx Instructions: 2 tabs po twice daily for first 7 days, then 1 tab po twice daily oxycodone-acetaminophen 1 TABLET tablet 1 tab PO TID PRN (Reason: Pain Score 1-10/10) metformin 500 mg tablet 500 mg PO BID metoprolol succinate 50 mg tablet extended release 24 hr 50 mg PO DAILY glimepiride 1 mg tablet 1 mg PO DAILY tamsulosin 0.4 mg capsule 0.4 mg PO QHS gabapentin 300 mg capsule 300 mg PO QHS finasteride 5 mg tablet 5 mg PO DAILY Mounjaro 5 mg/0.5 mL pen injector 5 mg subcut QWEEK Patient Comments: Takes on Sundays Primary Care Provider: Vu Beck Referrals: Vu Beck MD [Primary Care Provider] -
[2023-10-08] MEDS: Metoclopramide 10 MG/2 ML Vial IV (15:41)
[2023-10-08] MEDS: BENZOCAINE/MENTHOL 1 LOZENGE MUCOUS MEM (15:42)
--- NOTE | 2023-10-08 15:45 | RAD_ITS ---
INDICATION: cough EXAMINATION/TECHNIQUE: X-RAY - XR Chest 1 View COMPARISON: October 24, 2014 FINDINGS: LINES/DEVICES: None. LUNGS: No consolidation, edema or effusion. No pneumothorax. MEDIASTINUM AND CARDIOVASCULAR STRUCTURES: Cardiac silhouette not enlarged. Central airways and mediastinal contour are unremarkable. BONES AND SOFT TISSUES: Unremarkable. RAD/Chest 1 View (Portable) IMPRESSION: No radiographic evidence of acute cardiopulmonary disease. Electronically Signed: George Abernathy DO at 17:01 EST ,
[2023-10-08 15:49] LABS: Absolute Lymphocyte Count 2.04 X10^3/uL (0.83-4.51); Absolute Neutrophil Count 3.7 X10^3/uL (2.0-7.7); Basophil# 0.03 X10^3/uL; Basophil% 0.5 % (0-1); Hemoglobin 16.1 g/dL (13.0-16.5); Lymphocyte # 2.04 X10^3/ul (0.83-4.51); Lymphocyte % 30.6 % (19-41); Mean Corp Hgb Conc 32.9 g/dL (32-36); Mean Corpuscular Hgb 31.1 pg (27.0-32.0); Mean Corpuscular Volume 94.8 fL (80-94); Mean Platelet Vol. 10.1 fl (6.2-12.0); Monocyte# 0.87 X10^3/uL; Monocyte% 13.1 % (0-10); NRBC Flagged by Analyzer 0 % (0-5); Neutrophil % 55.5 % (47-70); Platelet Count 155 K/mm3 (150-450); RBC Distribution Width CV 14.2 % (11.6-14.6); Red Blood Count 5.17 M/mm3 (4.6-6.2); White Blood Count 6.7 K/mm3 (4.4-11.0)
[2023-10-08 16:02] LABS: ALB/GLOB Ratio 0.8 RATIO (0.9-2.4); AST(SGOT) 28 U/L (15-37); Alanine Aminotransfer ALT/SGPT 42 U/L (16-61); Albumin, Serum 3.1 g/dL (3.2-5.0); Alkaline Phosphatase 63 U/L (45-117); Anion Gap 8 (5-15); BUN 15 mg/dL (7-18); BUN/Creat Ratio 13.9 RATIO (10-20); Calcium,Total 8.3 mg/dL (8.5-10.1); Chloride 105 mmol/L (98-107); Creatinine, Serum 1.08 mg/dL (0.70-1.30); EST Glomerular Filtration Rate 71 mL/min (>60); Est Glom Filt Rate - Afr Amer 86 mL/min (>60); Estimated Creatinine Clearance 57.18 ml/min; Globulin 4.1 g/dL (2.2-4.2); Glucose 133 mg/dL (74-106); Protein, Total 7.2 g/dL (6.4-8.2); Sodium Level 139 mmol/L (136-145); Troponin-I HS 8 pg/mL (3.0-78.0)
[2023-10-08 16:22] LABS: BNP,B-Type NATRIURETIC PEPTIDE 149.1 pg/mL (0-100)
[2023-10-08 16:39] VITALS: BP 145/83; PULSE 99; RESP 27; O2SAT 96
[2023-10-08 16:42] LABS: Bacteria 0 SEEN /hpf (None Seen); Mucous, Urine 0 SEEN /hpf (<or=2+)
[2023-10-08 17:01] LABS: Color, Urine Yellow (Yellow); Glucose, Dipstick Normal (Normal); Ketone-Dipstick 5 mg/dl (Negative); Leukocyte Esterase-Dipstick 25 /ul (Negative); Nitrite-Dipstick Negative (Negative); Occult Blood-Urine 25 /ul (Negative); Protein-Dipstick 100 mg/dl (Negative); Urine Bilirubin Dipstick Negative (Negative); Urine Clarity Clear (Clear); Urine Urobilinogen Normal (Normal)
[2023-10-08] MEDS: Acetaminophen 500 MG Tablet 1000 MG PO (17:18)
[2023-10-08] MEDS: dexAMETHasone 10 MG/ML Vial 6 MG IV (17:22)
[2023-10-08 17:23] VITALS: BP 125/84; PULSE 88; RESP 16; TEMP 36.7; O2SAT 98
[2023-10-08 17:34] LABS: Red Blood Cells-Urine 0-5 SEEN /hpf (0-5); Squamous Epithelial Cells - UA 0-5 SEEN /hpf (0-5); White Blood Cells 0-5 SEEN /hpf (0-5)
--- NOTE | 2023-10-08 18:04 | HP.PCM.HOS_ITS ---
HPI - General General Date of Admission: 10/08/23 Date of Service: 10/08/23 Chief Complaint: Generalized weakness, cough HPI Narrative LACI LAWLER, is a 77 M who presents to the emergency room at [facility] with complaints of generalized weakness and cough, patient's weakness today has been severe and has not been able to get up without assistance. Patient remembers feeling ill about 3 days ago. Workup in the emergency room included a CBC which was unremarkable, patient's chemistry panel was remarkable for a bilirubin of 1.1 and a calcium of 8.3. Patient's chest x-ray was unremarkable, patient required 3 L of oxygen to maintain his pulse ox above 90%. Patient's rapid COVID test was positive, his rapid influenza test was negative. Patient will be admitted to [place] [address] for COVID-19 infection with hypoxia and g eneralized weakness, he will be given dexamethasone and remdesivir, he will be seen by PT and OT and his pulse ox will be monitored. [facility] Home Medications Ibuprofen [Motrin] 800 mg PO TID PRN PRN Pain 11/28/16 [History Last Taken Unkn own] apixaban 5 mg tablet (Eliquis) 5 mg PO BID #30 tabs 11/28/16 [Rx Last Taken 10/08/23] atorvastatin 40 mg tablet (Lipitor) 40 mg PO QHS 11/28/16 [History Last Taken Unknown] furosemide 40 mg tablet 40 mg PO DAILY 11/28/16 [History Last Taken Unknown] oxycodone-acetaminophen 5 mg-325 mg tablet 1 tab PO TID PRN Pain Score 1-07/2804/27/20 [History Last Taken Unknown] finasteride 5 mg tablet 5 mg PO DAILY Prostate 10/08/23 [History Last Taken Unknown] gabapentin 300 mg capsule 300 mg PO QHS Neuropathy 10/08/23 [History Last Taken Unknown] glimepiride 1 mg tablet 1 mg PO DAILY Diabetes 10/08/23 [History Last Taken 10/08/23] metformin 500 mg tablet 500 mg PO BID 10/08/23 [History Last Taken 10/08/23] metoprolol succinate 50 mg tablet,extended release 24 hr 50 mg PO DAILY Blood pressur 10/08/23 [History Last Taken 10/08/23] tamsulosin 0.4 mg capsule 0.4 mg PO QHS 10/08/23 [History Last Taken 10/07/23] tirzepatide 5 mg/0.5 mL subcutaneous pen injector (Mounjaro) 5 mg subcut QWEEK Weight loss 10/08/23 [History Last Taken Unknown] Allergy/AdvReac Type Severity Reaction Status Date / Time milk AdvReac Upset Verified 04/27/20 17:30 Stomach Milk Containing Products AdvReac Upset Verified 04/27/20 17:30 (Dairy) Stomach [Milk Containing Products] Social History Smoking Status: Never smoker ROS Constitutional Constitutional: Reports fatigue, malaise and weakness; Denies anorexia, change in weight, fever(s) or night sweats Eyes Eyes: Denies blurry vision, change in vision, discharge from eye(s) or eye pain Cardiovascular Cardiovascular: Reports dyspnea on exertion; Denies chest pain, claudication, edema or palpitations Respiratory/Chest Respiratory/Chest: Reports cough, shortness of breath at rest and shortness of breath with exertion; Denies hemoptysis Gastrointestinal Gastrointestinal: Denies abdominal pain, constipation, diarrhea, hematemesis, hematochezia, melena, nausea or vomiting Genitourinary Genitourinary: Denies dysuria, hematuria, urinary frequency, urinary hesitancy, urinary incontinence or urinary urgency Musculoskeletal Musculoskeletal: Denies back pain, joint pain, joint stiffness, joint swelling, myalgias or neck pain Neurologic Neurologic: Denies abnormal gait, abnormal speech, dizziness, focal weakness, headache(s), loss of vision, numbness, other visual disturbances, paresthesias, syncope or tingling Psychiatric Psychiatric: Denies anxiety, cognitive impairment, depression, irritability, mood swings or suicidal ideation Endocrine Endocrinology: Denies change in body appearance, cold intolerance, excessive sweating, heat intolerance, polydipsia or polyuria Hematologic/Lymphatic Hematologic/Lymphatic: Denies none, anemia, easy bleeding, easy bruising or lymphadenopathy Allergic/Immunologic Allergic/Immunologic: Denies rhinitis, urticaria, eczemia or asthma Vital Signs Vital Signs Vital Signs: 10/08/23 15:13 10/08/23 15:30 10/08/23 15:31 Temperature 98.3 F Temperature Source Oral Pulse Rate 92 86 Respiratory Rate 32 H 22 H Respiratory Pattern Tachypnea Blood Pressure 120/74 137/89 H Blood Pressure Mean 89 105 Pulse Ox 85 93 Oxygen Delivery Method Room Air Nasal Cannula Oxygen Flow Rate (L/min) 3 10/08/23 16:39 10/08/23 17:23 Temperature 98.0 F Temperature Source Pulse Rate 99 88 Respiratory Rate 27 H 16 Respiratory Pattern Blood Pressure 145/83 H 125/84 H Blood Pressure Mean 103 97 Pulse Ox 96 98 Oxygen Delivery Method Nasal Cannula Oxygen Flow Rate (L/min) 3 Weight Weight: 123.9 kg Body Mass Index (BMI) 41.5 Physical Exam Const alert, oriented x3 and no apparent distress Constitutional Narrative: Patient is morbidly obese General Appearance: cooperative, well kempt and well developed Orientation / Consciousness: awake, oriented to person, oriented to place and oriented to time HEENT normocephalic, head/scalp atraumatic, hearing grossly normal bilaterally and moist oral mucous membranes Eyes PERRL, EOMs intact bilaterally and conjunctivae normal Neck supple, no JVD and thyroid normal General: trachea midline Resp normal respiratory effort, no retractions, no use of accessory muscles and clear to auscultation bilaterally Auscultation: Negative for rales, rhonchi or wheezes Cardio regular rate, regular rhythm, S1 normal heart sound, S2 normal heart sound, no murmurs, no rub and no gallops GI normal to inspection, nondistended, normoactive bowel sounds, soft to palpation, non-tender and non-distended Extremity no clubbing, cyanosis or edema Skin no rashes or lesions noted General Skin Exam: no breakdown Neuro oriented x3, CN's II-XII intact bilaterally, moves all extremities, no focal motor deficits and no sensory deficits noted Sensorium / Orientation: awake, alert, oriented to person, oriented to place and oriented to time Speech: speech normal Psych affect normal Results Lab / Micro Data 10/08/23 15:15 10/08/23 15:15 Labs: Laboratory Results - last 24 hr 10/08/23 15:15: WBC 6.7, RBC 5.17, Hgb 16.1, Hct 49.0, MCV 94.8 H, MCH 31.1, MCHC 32.9, RDW Std Deviation 50.0 H, RDW Coeff of Zohra 14.2, Plt Count 155, MPV 10.1, Immature Gran % (Auto) 0.300, Neut % (Auto) 55.5, Lymph % (Auto) 30.6, [place] % (Auto) 13.1 H, Eos % (Auto) 0.0, Baso % (Auto) 0.5, Absolute Neuts (auto) 3.7, Absolute Lymphs (auto) 2.04, Nucleated RBC % 0, Sodium 139, Potassium 4.0, Chloride 105, Carbon Dioxide 26.0, Anion Gap 8, BUN 15, Creatinine 1.08, Estim Creat Clear Calc 57.18, Est GFR (MDRD) Af Amer 86, Est GFR (MDRD) Non-Af 71, BUN/Creatinine Ratio 13.9, Glucose 133 H, Calcium 8.3 L, Total Bilirubin 1.10 H, AST 28, ALT 42, Alkaline Phosphatase 63, Troponin I High Sens 8, B-Natriuretic Peptide 149.1 H, Total Protein 7.2, Albumin 3.1 L, Globulin 4.1, Albumin/Glob ulin Ratio 0.8 L 10/08/23 16:35: Urine Color Yellow, Urine Clarity Clear, Urine pH 6.0, Ur Specific [place] 1.020, Urine Protein 100 H, Urine Glucose (UA) Normal, Urine Ketones 5 H, Urine Occult Blood 25 H, Urine Nitrite Negative, Urine Bilirubin Negative, Urine Urobilinogen Normal, Ur Leukocyte Esterase 25 H, Urine RBC 0-5 SEEN, Urine WBC 0-5 SEEN, Ur Squamous Epith Cells 0-5 SEEN, Urine Bacteria 0 SEEN, Urine Mucus 0 SEEN Micro: Microbiology 10/08/23 15:50 Nasal Secretion SARS-CoV-2 & FLU Antigen (Rapid) - Final Imagaing Radiology Impression Chest X-Ray 10/08/23 15:45 IMPRESSION: No radiographic evidence of acute cardiopulmonary disease. Electronically Signed: George Abernathy DO at 17:01 EST Reading Location ID and State: [facility] / [place] Tel [phone], Service support , Assessment & Plan Assessment/Plan (1) Generalized weakness: PLAN: Plan 1. COVID-19 infection with hypoxia-patient will be admitted to [facility] 3, he will receive IV remdesivir and p.o. 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
[2023-10-08 19:00] VITALS: O2SAT 96
[2023-10-08 20:24] VITALS: BP 114/79; PULSE 76; RESP 18; TEMP 36.6; O2SAT 96
[2023-10-08 20:26] VITALS: BMI 40.1
[2023-10-08] MEDS: Remdesivir 200 MG in 0.9% Normal Saline (250mL Bag) 210 ML 250 MG IV (21:02)
[2023-10-08] MEDS: Gabapentin 300 MG Capsule PO (21:05)
[2023-10-08] MEDS: APIXABAN 5 MG TABLET PO (21:05)
[2023-10-08] MEDS: Atorvastatin Calcium 40 MG Tablet PO (21:05)
[2023-10-08] MEDS: 0.9% Saline Lock 10 ML Syringe IV (21:12)
[2023-10-09] VITALS (8 sets, daily range): BP systolic 101–136; BP diastolic 60–92; PULSE 61–76; RESP 16–18; TEMP 36.4–36.6; O2SAT 91–96
[2023-10-09] MEDS: guaiFENesin Dm 10 ML UDC PO (06:28)
[2023-10-09 06:47] LABS: Bedside Glucose 145 mg/dL (74-106)
[2023-10-09] MEDS: Metoprolol(XL)Succ 50 MG Tablet PO (09:19)
[2023-10-09] MEDS: metFORMIN HCl 500 MG Tablet PO ×2 (09:20→17:33)
[2023-10-09] MEDS: APIXABAN 5 MG TABLET PO ×2 (09:20→21:04)
[2023-10-09] MEDS: dexAMETHasone 4 MG Tablet 6 MG PO (09:20)
[2023-10-09] MEDS: Remdesivir 100 MG in 0.9% Normal Saline (250mL Bag) 230 ML 250 MG IV (10:49)
[2023-10-09] MEDS: Insulin Lispro 100 UNIT/ML INSULN.PEN SC ×3 (10:53→21:04)
[2023-10-09 11:18] LABS: Bedside Glucose 179 mg/dL (74-106)
--- NOTE | 2023-10-09 14:17 | CASEMGMT ---
MATILDA NASCIMENTO Assessment Face to Face with patient for initial transition planning/care coordination assessment. MATILDA NASCIMENTO introduced self and role at [facility], pt voices understanding. Pt is sitting up in the chair at this time. Pt is A&Ox4 and is calm. Care providers, pharmacy, and demographics verified. Admitting Dx:COVID, Hypoxia, Weakness LACE Strata: 2 PCP: [facility]: Pt states that he sees a urologist through the [facility] in [place]. Pt states he saw a chemical engineering professor through the [place] one time 6 months ago and everything came back negative. Preferred Pharmacy: [facility] Insurance: Pt has insurance through the [place] and secondary insurance through [employer]. Prescription Benefit: Yes LNOK: Yareli Plascencia - Living Arrangements:Pt states that he lives in a private 1 story home with his . Pt states that there are 3 steps to enter the home with no difficulty. ADLs/ IADLs: Pt states he is able to ambulate comfortably with the use of a walker. Pt states he is able to perform ADLs independently. Pt also tells this MATILDA NASCIMENTO that he can perform all IADLs independently. Transportation: Pt drives and is able to drive as well. DME: Denies home O2 use. Pt reports he has a walker and a cane supplied by the [place]. Pt states that he has assistive grab bars for toileting. Pt states that he has a walk in shower with no grab bars. Pt states that he uses a walker to help him shower. HHC/SNF: Denies history or needs at this time. Pt?s goal/plan: Pt goal is to be DC home tomorrow 10/10/23 via his . Pt denies the need for HHC or long term post discharge. Pt states that when he is DC home his can help him if needed. Pt states he is feeling much stronger and will be ready for DC to home with no needs. PLAN: Home with assist Mariano Mc RN, CM
--- NOTE | 2023-10-09 15:00 | NURSING ---
pt called and stated that sonam has not had a bm for 3 days and needs a stat intervention. he needs a supp now given. pt also stated that he has has a sore throat and needs lidocaine spry stat for his throat. pt also stated that she wanted the allergy to milk removed from his allergy list because he should be able to eat whatever he wants. she also stated that he needs pillows behind back and bottom when up in chair because he has sever spinal stenosis. nursing explained that we don't live lidocaine spray for a sore throat because it would hinder the swallowing of the pt. pt also stated that the candy that he has was helping his throat. 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 . pt stated that she wants all these things immediately and called back once dr has ordered them. nursing called dr espinal and told him about pt request. stated he does not need spray for throat. pt can have miralax or supp whatever pt wanted. pt asked if he wanted supp or miralax and pt chose milalax. returned call made to and explained that dr did not want to order throat spray when candy was working. pt chose miralax to help with bowels. and allergy to milk was removed per her request.
[2023-10-09] MEDS: Polyethylene Glycol 3350 17 GM PACKET PO (15:20)
[2023-10-09 15:54] LABS: Bedside Glucose 198 mg/dL (74-106)
--- NOTE | 2023-10-09 15:55 | PCM.PN.HOSP ---
Subjective Subjective Doing well, feels better than when he came in. Breathing a bit better, currently 93% on room air Objective Data Objective Data Vital Signs: Vital Signs Temp Pulse Resp BP Pulse Ox O2 Del Method O2 Flow Rate 97.7 F L 65 16 105/60 94 Room Air 2 10/09/23 15:29 10/09/23 15:29 10/09/23 15:29 10/09/23 15:29 10/09/23 15:29 10/09/23 15:29 10/09/23 09:28 Oxygen Flow Rate (L/min) 2 Oxygen Delivery Method Room Air Weight: 265 lb 3.457 oz Body Mass Index (BMI) 40.1 Intake & Output: Intake and Output for Last 24 Hours 10/08/23 10/09/23 10/10/23 03:59 03:59 03:59 Intake Total 250 / 250 700 / 700 Output Total 700 / 700 Balance 250 / 250 0 / 0 Lab / Micro Data 10/08/23 15:15 10/08/23 15:15 Labs: Laboratory Results - last 24 hr 10/08/23 15:15: Sodium 139, Potassium 4.0, Chloride 105, Carbon Dioxide 26.0, Anion Gap 8, BUN 15, Creatinine 1.08, Estim Creat Clear Calc 57.18, Est GFR (MDRD) Af Amer 86, Est GFR (MDRD) Non-Af 71, BUN/Creatinine Ratio 13.9, Glucose 133 H, Calcium 8.3 L, Total Bilirubin 1.10 H, AST 28, ALT 42, Alkaline Phosphatase 63, Troponin I High Sens 8, B-Natriuretic Peptide 149.1 H, Total Protein 7.2, Albumin 3.1 L, Globulin 4.1, Albumin/Globulin Ratio 0.8 L 10/08/23 16:35: Urine Color Yellow, Urine Clarity Clear, Urine pH 6.0, Ur Specific [place] 1.020, Urine Protein 100 H, Urine Glucose (UA) Normal, Urine Ketones 5 H, Urine Occult Blood 25 H, Urine Nitrite Negative, Urine Bilirubin Negative, Urine Urobilinogen Normal, Ur Leukocyte Esterase 25 H, Urine RBC 0-5 SEEN, Urine WBC 0-5 SEEN, Ur Squamous Epith Cells 0-5 SEEN, Urine Bacteria 0 SEEN, Urine Mucus 0 SEEN 10/09/23 06:26: POC Glucose 145 H 10/09/23 10:52: POC Glucose 179 H 10/09/23 15:18: POC Glucose 198 H Micro: Microbiology 10/08/23 15:50 Nasal Secretion SARS-CoV-2 & FLU Antigen (Rapid) - Final SARS-CoV-2 (COVID 19) Radiography Diagnostic Testing: Radiology Impression Chest X-Ray 10/08/23 15:45 IMPRESSION: No radiographic evidence of acute cardiopulmonary disease. Electronically Signed: George Abernathy DO at 17:01 EST Reading Location ID and State: [facility] / [place] Tel [phone], Service support , Physical Exam Narrative General: Alert, Oriented x3, Cooperative, No apparent distress HEENT: Atraumatic, PERRLA, EOMI, Normocephalic Oral: Moist Mucosa Neck: Supple, No JVD Lungs: Diminished, Normal air movement, No rhonchi, No wheeze, No rales Cardiovascular: Regular rate, Regular Rhythm, Normal S1, Normal S2, No murmurs Abdomen: Soft, Non Tender, Non-Distended, No Hepato-splenomegaly Extremities: No edema, Capillary Refill Less than 3 Seconds Skin: No rashes, No breakdown Musculoskeletal: No Tenderness to Palpation of Joints or Extremities Neurological: Cranial nerves II-XII grossly intact, Motor Exam 5/5 strength throughout, Sensory exam intact to light touch and pain Psych/Mental Status: Normal Affect, Appropriate Assessment & Plan Assessment/Plan (1) Generalized weakness: PLAN: Plan 1. Hypoxia secondary to COVID-19 ? Continue with Decadron and remdesivir ? Ambulatory pulse ox today did not demonstrate a need for oxygen although he is in the low 90s ? Encourage incentive spirometry 2. HTN/HLD/A-fib ? Blood pressures are stable, can continue his home blood pressure medications ? Continue with his cholesterol medications ? Continue with his Eliquis ? We will monitor make adjustments as necessary 3. DM2 ? Continue with his home metformin ? Sliding scale insulin ? Accu-Cheks ACHS ? We will monitor make adjustments as necessary 4. History of DVTs ? Continue with Eliquis 5. Chronic back pain ? Continue with his home narcotics DVT: Eliquis Charges/Coding Visit Charges Inpatient E&M: 53749 Subs Hosp L2
[2023-10-09] MEDS: Atorvastatin Calcium 40 MG Tablet PO (21:04)
[2023-10-09] MEDS: Gabapentin 300 MG Capsule PO (21:04)
[2023-10-09 21:27] LABS: Bedside Glucose 215 mg/dL (74-106)
[2023-10-10] VITALS (7 sets, daily range): BP systolic 105–131; BP diastolic 68–85; PULSE 63–67; RESP 18–20; TEMP 36.4–36.6; O2SAT 86–96
[2023-10-10 00:14] LABS: Bedside Glucose 203 mg/dL (74-106)
[2023-10-10 00:14] LABS: Bedside Glucose 183 mg/dL (74-106)
[2023-10-10] MEDS: Insulin Lispro 100 UNIT/ML INSULN.PEN SC ×2 (06:43→11:16)
[2023-10-10 07:07] LABS: Bedside Glucose 173 mg/dL (74-106)
--- NOTE | 2023-10-10 09:42 | DCINST_ITS ---
Discharge Instructions Diet Discharge Diet: 8 Cup Fluid Restriction and Carb Control Diet Activity Discharge Activity: Return to Normal Activity Dressing / Incision Call your doctor if you observe: Fever of 101 or Higher, Shortness of breath, Dizziness, Fainting spells, Swelling in the ankles, Chest pain and Increased palpitations (irregular heartbeat) Follow Up Care Test Results: Test results from this visit will be discussed in further detail at your follow- up appointment, if applicable. Discharge Plan Admission Admit Date/Time: 10/08/23 17:51 Attending Provider: Harshal Manzo Primary Care Provider: Vu Beck Consulting Providers: Vu Campos Discharge Orders/Prescriptions Prescriptions: New dexamethasone 2 mg tablet 6 mg PO DAILY 8 Days Qty: 24 0RF Continued furosemide 40 MG tablet 40 mg PO DAILY Patient Comments: pt no longer takes atorvastatin [Lipitor] 40 MG tablet 40 mg PO QHS Ibuprofen [Motrin] 800 MG tablet 800 mg PO TID PRN PRN (Reason: Pain) Eliquis 5 MG tablet 5 mg PO BID Qty: 30 0RF Rx Instructions: 2 tabs po twice daily for first 7 days, then 1 tab po twice daily oxycodone-acetaminophen 1 TABLET tablet 1 tab PO TID PRN (Reason: Pain Score 1-10/10) metformin 500 mg tablet 500 mg PO BID metoprolol succinate 50 mg tablet extended release 24 hr 50 mg PO DAILY glimepiride 1 mg tablet 1 mg PO DAILY tamsulosin 0.4 mg capsule 0.4 mg PO QHS gabapentin 300 mg capsule 300 mg PO QHS finasteride 5 mg tablet 5 mg PO DAILY Mounjaro 5 mg/0.5 mL pen injector 5 mg subcut QWEEK Patient Comments: Takes on Sundays Referrals / Follow Up: Vu Beck MD [Primary Care Provider] - Within 1 Week Disposition Disposition (needs filled in before D/C Order can be placed): Home, Self Care
[2023-10-10] MEDS: APIXABAN 5 MG TABLET PO (09:53)
[2023-10-10] MEDS: Metoprolol(XL)Succ 50 MG Tablet PO (09:53)
[2023-10-10] MEDS: dexAMETHasone 4 MG Tablet 6 MG PO (09:53)
[2023-10-10] MEDS: metFORMIN HCl 500 MG Tablet PO (09:53)
[2023-10-10] MEDS: 0.9% Saline Lock 10 ML Syringe IV (09:54)
[2023-10-10] MEDS: Remdesivir 100 MG in 0.9% Normal Saline (250mL Bag) 230 ML 250 MG IV (09:54)
[2023-10-10] MEDS: Bisacodyl 10 MG Suppository RC (11:15)
--- NOTE | 2023-10-10 14:10 | PCM.DC.SUM ---
Providers Date of Admission: 10/08/23 Primary Care Physician: Dr. Vu Beck MD Reason For Visit: COVID 19, HYPOXIA, WEAKNESS Diagnosis Discharge Diagnosis (1) Generalized weakness: Status: Acute Code(s): R53.1 - Weakness Medications at Discharge Home Medications Ibuprofen [Motrin] 800 mg PO TID PRN PRN Pain 11/28/16 apixaban 5 mg tablet (Eliquis) 5 mg PO BID #30 tabs 11/28/16 atorvastatin 40 mg tablet (Lipitor) 40 mg PO QHS 11/28/16 furosemide 40 mg tablet 40 mg PO DAILY swellling 11/28/16 oxycodone-acetaminophen 5 mg-325 mg tablet 1 tab PO TID PRN Pain Score 1-07/2804/27/20 finasteride 5 mg tablet 5 mg PO DAILY Prostate 10/08/23 gabapentin 300 mg capsule 300 mg PO QHS Neuropathy 10/08/23 glimepiride 1 mg tablet 1 mg PO DAILY Diabetes 10/08/23 metformin 500 mg tablet 500 mg PO BID 10/08/23 metoprolol succinate 50 mg tablet,extended release 24 hr 50 mg PO DAILY Blood pressur 10/08/23 tamsulosin 0.4 mg capsule 0.4 mg PO QHS urinary retention 10/08/23 tirzepatide 5 mg/0.5 mL subcutaneous pen injector (Mounjaro) 5 mg subcut QWEEK Weight loss 10/08/23 dexamethasone 2 mg tablet 6 mg (3 x 2 mg) PO DAILY 8 days #24 tabs 10/10/23 Hospital Course Operations None Procedures None Summary of Care Provided Minutes Spent on Discharge: 33 Hospital Course: Per HPI: LACI LAWLER, is a 77 M who presents to the emergency room at [facility] with complaints of generalized weakness and cough, patient's weakness today has been severe and has not been able to get up without assistance. Patient remembers feeling ill about 3 days ago. Workup in the emergency room included a CBC which was unremarkable, patient's chemistry panel was remarkable for a bilirubin of 1.1 and a calcium of 8.3. Patient's chest x-ray was unremarkable, patient required 3 L of oxygen to maintain his pulse ox above 90%. Patient's rapid COVID test was positive, his rapid influenza test was negative. Patient will be admitted to MedSurg 3 for COVID-19 infection with hypoxia and generalized weakness, he will be given dexamethasone and remdesivir, he will be seen by PT and OT and his pulse ox will be monitored. Hospital Course: 1. Hypoxia secondary to COVID-19?77-year-old male presented to the hospital with COVID-like symptoms test positive for COVID on he has had symptoms now for about 5 days. He was started on remdesivir and Decadron and has significant improvement, yesterday he was able to come off the oxygen in the afternoon and was not requiring any oxygen with ambulation. This morning prior to discharge he had another ambulatory pulse ox which was also normal and did not require any oxygen on discharge. Of note he does get a little bit hypoxic at night but he is aware of this as he is supposed to be wearing a BiPAP/CPAP however he stopped wearing it 2 years ago because he just does not want to despite having obstructive sleep apnea. I discussed with him the plan for discharge today he expressed understanding the risk benefits of going home and would like to go home today. Will plan for another 8 days of Decadron on discharge. 2. Hypertension, hyperlipidemia, A-fib, type 2 diabetes, history of DVTs, chronic low back pain are all chronic medical conditions which complicate his care. His home medications were continued where appropriate Physical Exam Narrative General: Alert, Oriented x3, Cooperative, No apparent distress HEENT: Atraumatic, PERRLA, EOMI, Normocephalic Oral: Moist Mucosa Neck: Supple, No JVD Lungs: Diminished, Normal air movement, No rhonchi, No wheeze, No rales Cardiovascular: Regular rate, Regular Rhythm, Normal S1, Normal S2, No murmurs Abdomen: Soft, Non Tender, Non-Distended, No Hepato-splenomegaly Extremities: No edema, Capillary Refill Less than 3 Seconds Skin: No rashes, No breakdown Musculoskeletal: No Tenderness to Palpation of Joints or Extremities Neurological: Cranial nerves II-XII grossly intact, Motor Exam 5/5 strength throughout, Sensory exam intact to light touch and pain Psych/Mental Status: Normal Affect, Appropriate Weight / BMI Weight Weight: 265 lb 3.457 oz Body Mass Index (BMI) 40.1 ABG / Lab / Microbiology Data 10/08/23 15:15 10/08/23 15:15 Laboratory: Laboratory Results - last 24 hr 10/08/23 21:08: POC Glucose 203 H 10/08/23 21:14: POC Glucose 183 H 10/09/23 15:18: POC Glucose 198 H 10/09/23 20:50: POC Glucose 215 H 10/10/23 06:42: POC Glucose 173 H Microbiology: Microbiology 10/08/23 15:50 Nasal Secretion SARS-CoV-2 & FLU Antigen (Rapid) - Final SARS-CoV-2 (COVID 19) D/C Instructions Discharge Diet: 8 Cup Fluid Restriction and Carb Control Diet Call your doctor if you observe: Fever of 101 or Higher, Shortness of breath, Dizziness, Fainting spells, Swelling in the ankles, Chest pain and Increased palpitations (irregular heartbeat) Meaningful Use Info Meaningful Use Diagnoses (Choose all that apply): None applicable Discharge Plan Admission Admit Date/Time: 10/08/23 17:51 Attending Provider: Harshal Manzo Primary Care Provider: Vu Beck Consulting Providers: Vu Campos Discharge Orders/Prescriptions Prescriptions: New dexamethasone 2 mg tablet 6 mg PO DAILY 8 Days Qty: 24 0RF Continued furosemide 40 MG tablet 40 mg PO DAILY Patient Comments: pt no longer takes atorvastatin [Lipitor] 40 MG tablet 40 mg PO QHS Ibuprofen [Motrin] 800 MG tablet 800 mg PO TID PRN PRN (Reason: Pain) Eliquis 5 MG tablet 5 mg PO BID Qty: 30 0RF Rx Instructions: 2 tabs po twice daily for first 7 days, then 1 tab po twice daily oxycodone-acetaminophen 1 TABLET tablet 1 tab PO TID PRN (Reason: Pain Score 1-10/10) metformin 500 mg tablet 500 mg PO BID metoprolol succinate 50 mg tablet extended release 24 hr 50 mg PO DAILY glimepiride 1 mg tablet 1 mg PO DAILY tamsulosin 0.4 mg capsule 0.4 mg PO QHS gabapentin 300 mg capsule 300 mg PO QHS finasteride 5 mg tablet 5 mg PO DAILY Mounjaro 5 mg/0.5 mL pen injector 5 mg subcut QWEEK Patient Comments: Takes on Sundays Referrals / Follow Up: Vu Beck MD [Primary Care Provider] - Within 1 Week Disposition Disposition (needs filled in before D/C Order can be placed): Home, Self Care Charges/Coding Visit Charges Inpatient E&M: 92149 Disch Hosp >30min
[2023-10-10 17:35] LABS: Bedside Glucose 156 mg/dL (74-106)
== END 2023-10-10 11:45 | disposition home or self-care (01) | DRG 178 ==
LOC: ED 17:53 → MS3 19:24
PROVIDERS: Admitting Provider Internal Medicine; Emergency Provider Student in an Organized Health Care Education/Training Program; PCP Family Medicine; Visit Provider Family Medicine
DX: U07.1 COVID-19 (principal); Z68.41 Body mass index [BMI] 40.0-44.9, adult; E11.9 Type 2 diabetes mellitus without complications; E66.01 Morbid (severe) obesity due to excess calories; I48.91 Unspecified atrial fibrillation; I10 Essential (primary) hypertension; E78.5 Hyperlipidemia, unspecified; M54.50 Low back pain, unspecified; Z79.01 Long term (current) use of anticoagulants; G89.29 Other chronic pain; Z86.718 Personal history of other venous thrombosis and embolism
CPT/HCPCS: 36415; 71045; 80053; 81001; 82962; 83880; 84484; 85025; 87428; 93005; 97161; 97166; 97802; 99284; J7050; A4216; J0248

== ENCOUNTER → 2024-07-05 | Outpatient (CLI) | payer MEDICARE, SELFPAY | END | disposition home or self-care (01) | PROVIDERS: PCP Family Medicine | DX: G47.33 Obstructive sleep apnea (adult) (pediatric) (principal) | CPT/HCPCS: 95811 ==

== ENCOUNTER 2024-09-18 04:32 | Emergency (ER) | payer OTHER, SELFPAY ==
[2024-09-18 04:33] VITALS: BP 176/83; PULSE 67; RESP 16; TEMP 36.6; O2SAT 100; BMI 39.6
--- NOTE | 2024-09-18 05:02 | ED.VIS.LOWEX ---
HPI History of Present Illness Chief Complaint: Lower Extremity Injury Informant: patient Narrative Narrative: 78-year-old male presenting with spontaneous onset of right knee pain over 1-2 days gradually. No injury. Hurts severely to bend it at all. He has had issues with this knee in the past, and he had a cortisone injection and it wants. He has never had gout or septic arthritis that he knows of. He does have a history of blood clots in his legs in his lungs, and is on Eliquis, his last dose was this past evening. He denies any fevers, chills, systemic symptoms other than the pain in the right knee right now. He states he had been comparing both knees and the right 1 may be a little swollen compared with the left but he is not sure, but it felt warmer. [facility] Medical History (Updated 09/18/24 @ 06:[address] Donovan Randolph MD) History of DVT (deep vein thrombosis) Thoracic spinal stenosis Chronic back pain PAF (paroxysmal atrial fibrillation) History of pulmonary embolism Hypertension Obesity (BMI 30-39.9) Type 2 diabetes mellitus Peripheral neuropathy Medical History unable to obtain Home Medications ?Medication ?Instructions ?Recorded ?Last Taken ?Type atorvastatin 40 mg tablet (Lipitor) 40 mg PO QHS 11/28/16 Unknown History gabapentin 300 mg capsule 300 mg PO QHS Neuropathy 10/08/23 Unknown History metformin 500 mg tablet 500 mg PO BID 10/08/23 10/08/23 History metoprolol succinate 50 mg 50 mg PO DAILY Blood pressur 10/08/23 10/08/23 History tablet,extended release 24 hr tirzepatide 5 mg/0.5 mL 5 mg subcut QWEEK Weight loss 10/08/23 Unknown History subcutaneous pen injector (Mounjaro) apixaban 5 mg tablet (Eliquis) 5 mg PO BID 09/18/24 Unknown History oxycodone-acetaminophen 5 mg-325 1 tab PO Q6H PRN PRN Pain 3 days 09/18/24 Unknown Rx mg tablet #10 TABLETS prednisone 20 mg tablet 40 mg (2 x 20 mg) PO DAILY 5 days 09/18/24 Unknown Rx #10 tabs Allergy/AdvReac Type Severity Reaction Status Date / Time No Known Allergies Allergy Verified 09/18/24 04:38 Social History Smoking Status: Never smoker ROS ROS ED Constitutional Constitutional ED: Denies chills or fever(s) Musculoskeletal Musculoskeletal: Reports extremity pain; Denies neck pain Integumentary Denies Abrasions, rash or wounds Neurologic Neurologic: Denies paresthesias or weakness EXAM Physical Exam Const Vital Signs: 09/18/24 04:33 Temperature 98 F Temperature Source Oral Pulse Rate 67 Respiratory Rate 16 Blood Pressure 176/83 H Blood Pressure Mean 114 Pulse Ox 100 Positive well nourished and well developed General Appearance ED: well developed and NAD Neck full ROM and supple Back/Spine normal ROM and normal to inspection Extremity Extremity Narrative: Normal inspection both knees. The right knee does not appear to be significant swelling compared with the contralateral 1 I do not see a significant effusion. However with trying to passively bend the right knee patient report significant discomfort with barely any range of motion. The right knee is warm but not hot compared with surrounding tissue/compartments. All compartment soft and nondistended no tenderness. Prominent right tibial tuberosity which the patient states is chronic. No bony tenderness. No erythema or skin abnormalities/rashes. Neuro oriented x3, no focal motor deficits and no sensory deficits noted Sensorium / Orientation: alert Psych mental status grossly normal and thought process normal Skin no wounds Rashes: no rashes MDM MDM MDM Narrative Medical decision making narrative: Differential includes hemarthrosis given the patient is anticoagulated on Eliquis, septic arthritis given that he is a diabetic and has a higher risk than the normal population for that, osteoarthritis/inflammation/soft tissue injury such as meniscus injury or internal knee sprain/derangement, gouty arthritis. Obtained a two-view right knee x-ray which on my interpretation shows chronic abnormalities, but there is no [id number] and no other acute abnormality such as a large effusion. Labs are noted, he has no leukocytosis and his ESR and CRP are normal, arguing against an acute septic arthritis. His uric acid is within normal limits, this does not rule out gout, which is still in the differential as is a hemarthrosis. 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 Patient states he has been doing this but nothing out of the ordinary for him and his knee is never done this before. Given all of this and the fact that he is anticoagulated, my thought is that performing an arthrocentesis could potentially worsen his condition by causing an arthrocentesis that may or may not be there already, and since his ESR and CRP are normal I think that the risks outweigh the potential benefits of performing this procedure which we discussed. Therefore I think the best course of action since he unlikely has a septic arthritis is a put him on prednisone and advised him to ice and use an Nir wrap and follow-up with orthopedics if symptoms persist or return to the ER if they are acutely worse. He is comfortable with that plan. I will also prescribe him some oxycodone which we gave him here and helped. He already has a cane and a walker at home, so does not require crutches and he is good with that. Lab Data Attestation: I reviewed the patient's lab results. Labs: Laboratory Results - last 24 hr 09/18/24 05:27 WBC 10.2 RBC 4.62 Hgb 15.0 Hct 44.0 MCV 95.2 H MCH 32.5 H MCHC 34.1 RDW Std Deviation 48.1 H RDW Coeff of Zohra 13.7 Plt Count 177 MPV 9.7 Immature Gran % (Auto) 0.400 Neut % (Auto) 69.6 Lymph % (Auto) 22.8 [place] % (Auto) 5.4 Eos % (Auto) 1.5 Baso % (Auto) 0.3 Absolute Neuts (auto) 7.1 Absolute Lymphs (auto) 2.31 Nucleated RBC % 0 ESR 20 Sodium 141 Potassium 4.3 Chloride 110 H Carbon Dioxide 27.0 Anion Gap 4 L BUN 18 Creatinine 1.02 Estim Creat Clear Calc 77.04 Est GFR (MDRD) Af Amer 91 Est GFR (MDRD) Non-Af 75 BUN/Creatinine Ratio 17.6 Glucose 143 H Uric Acid 5.0 Calcium 8.4 L C-React Prot Ext Range < 2.90 Discharge Plan Triage Chief Complaint: Lower Extremity Injury ED Provider: Donovan Randolph Dx/Rx/DC Orders Clinical Impression: Acute pain of right knee Instructions: Knee Pain Prescriptions: New prednisone 20 mg tablet 40 mg PO DAILY 5 Days Qty: 10 0RF oxycodone-acetaminophen 5-325 mg tablet 1 tab PO Q6H PRN PRN (Reason: Pain) 3 Days Qty: 10 0RF No Action atorvastatin [Lipitor] 40 MG tablet 40 mg PO QHS metformin 500 mg tablet 500 mg PO BID metoprolol succinate 50 mg tablet extended release 24 hr 50 mg PO DAILY gabapentin 300 mg capsule 300 mg PO QHS Mounjaro 5 mg/0.5 mL pen injector 5 mg subcut QWEEK Patient Comments: Takes on Sundays Eliquis 5 MG tablet 5 mg PO BID Primary Care Provider: Vu Beck Referrals: Vu Beck MD [Primary Care Provider] - Harshal Ramos DO [Med Staff - Active Staff] - 3-5 Days if not improving Print Language: Beninese Disposition Disposition: Home, Self Care
[2024-09-18] MEDS: oxyCODONE 5 MG Tablet PO (05:23)
--- NOTE | 2024-09-18 05:30 | RAD_ITS ---
INDICATION: pain EXAMINATION/TECHNIQUE: X-RAY - RIGHT XR Knee 1 or 2 Views 2 VIEWS COMPARISON: No relevant prior comparison study available FINDINGS: SOFT TISSUES: No soft tissue swelling or gas. No radiopaque foreign body. BONES/JOINTS: No acute fracture or subluxation.. Normal alignment. Prominent enthesophyte formation of the patella and tibial tuberosity. No joint effusion. Small osteophytes at the patellofemoral compartment. No sclerotic or destructive changes observed. RAD/Knee 1 or 2 Views IMPRESSION: No fracture or malalignment. Mild degenerative change. Electronically Signed: Doyle Teague MD at 6:36 EST ,
[2024-09-18 05:38] LABS: Erythrocyte Sedimentation Rate 20 mm/hr (0-20)
[2024-09-18 05:39] LABS: Absolute Lymphocyte Count 2.31 X10^3/uL (0.83-4.51); Absolute Neutrophil Count 7.1 X10^3/uL (2.0-7.7); Basophil# 0.03 X10^3/uL; Basophil% 0.3 % (0-1); Eosinophil# 0.15 X10^3/uL; Eosinophils% 1.5 % (0-5); Lymphocyte # 2.31 X10^3/ul (0.83-4.51); Lymphocyte % 22.8 % (19-41); Mean Corp Hgb Conc 34.1 g/dL (32-36); Mean Corpuscular Hgb 32.5 pg (27.0-32.0); Mean Corpuscular Volume 95.2 fL (80-94); Mean Platelet Vol. 9.7 fl (6.2-12.0); Monocyte# 0.55 X10^3/uL; Monocyte% 5.4 % (0-10); NRBC Flagged by Analyzer 0 % (0-5); Neutrophil # 7.07 X10^3/uL (2.7-7.7); Neutrophil % 69.6 % (47-70); Platelet Count 177 K/mm3 (150-450); RBC Distribution Width CV 13.7 % (11.6-14.6); RBC Distribution Width SD 48.1 fl (35.1-43.9); Red Blood Count 4.62 M/mm3 (4.6-6.2); White Blood Count 10.2 K/mm3 (4.4-11.0)
[2024-09-18 06:01] LABS: Anion Gap 4 (5-15); BUN 18 mg/dL (7-18); BUN/Creat Ratio 17.6 RATIO (10-20); CRP < 2.90 mg/L (0.0-3.0); Calcium,Total 8.4 mg/dL (8.5-10.1); Chloride 110 mmol/L (98-107); Creatinine, Serum 1.02 mg/dL (0.70-1.30); EST Glomerular Filtration Rate 75 mL/min (>60); Est Glom Filt Rate - Afr Amer 91 mL/min (>60); Estimated Creatinine Clearance 77.04 ml/min; Glucose 143 mg/dL (74-106); Potassium 4.3 mmol/L (3.5-5.1); Sodium Level 141 mmol/L (136-145)
[2024-09-18 06:41] VITALS: BP 145/95; PULSE 68; RESP 18; TEMP 36.4; O2SAT 97
[2024-09-18] MEDS: predniSONE 20 MG Tablet 40 MG PO (06:42)
== END 2024-09-18 06:43 | disposition home or self-care (01) ==
PROVIDERS: Emergency Provider Emergency Medicine; PCP Family Medicine; Visit Provider Emergency Medicine
DX: M25.561 Pain in right knee (principal); E11.42 Type 2 diabetes mellitus with diabetic polyneuropathy; I10 Essential (primary) hypertension; M54.9 Dorsalgia, unspecified; G89.29 Other chronic pain; Z79.01 Long term (current) use of anticoagulants; Z79.84 Long term (current) use of oral hypoglycemic drugs; Z79.85 Long-term (current) use of injectable non-insulin antidiabetic drugs; Z79.899 Other long term (current) drug therapy; Z86.718 Personal history of other venous thrombosis and embolism; Z86.711 Personal history of pulmonary embolism
CPT/HCPCS: 73560; 80048; 84550; 85025; 85652; 86140; 99282